=== PATIENT | female | born 1950 | race American Indian/Alaskan Native ===

== ENCOUNTER 2016-09-14 12:50 | Emergency (ER) | payer OTHER, BC ==
[2016-09-14 13:08] VITALS: BP 132/84; PULSE 85; TEMP 98.7; BMI 26.0
[2016-09-14] MEDS ORDERED: ALBUTEROL SO4 2.5/IPRATROPIUM 0.5 INH SOL 3 ML VIAL.NEB. NEB ONE ×2 (13:34→15:06)
[2016-09-14] MEDS ORDERED: guaiFENesin/CODEINE 5 ML UNIT-DOSE CUPS PO ONE (13:35)
--- NOTE | 2016-09-14 13:36 | PDOC ---
History of Present Illness - General Chief Complaint: Respiratory Stated Complaint: COUGH Time Seen by Provider: 09/14/16 13:19 History Source: Patient Exam Limitations: No Limitations - History of Present Illness Initial Comments: 66 yo F history DM presents with cough. She states that she saw her PMD when she initially became sick about a week ago. She was prescribed a z-pack and tamiflu, which she has finished. She noted that the fever, congestion, and SOB were improving, but today she started to have fits of coughing that leave her short of breath. She is not short of breath at rest, and she is able to take a deep breath. Cough is nonproductive. She took phenergan with codeine with incomplete relief (it was her last dose). Past History - Past Medical History Allergies/Adverse Reactions: Allergies Allergy/AdvReac Type Severity Reaction Status Date / Time acetaminophen [From Percocet] Allergy Unknown Verified 09/14/16 12:59 epinephrine Allergy Unknown Verified 09/14/16 12:59 oxycodone HCl [From Percocet] Allergy Unknown Verified 09/14/16 12:59 Home Medications: Ambulatory Orders Aspirin [Aspirin EC] 81 mg PO HS 09/14/16 Azithromycin [Zithromax -] 250 mg PO UTDICT 09/14/16 Guaifenesin AC [Robitussin AC -] 5 ml PO Q6H #60 ml MDD 20 mL 09/14/16 Losartan Potassium [Cozaar] 25 mg PO DAILY 09/14/16 Metformin HCl 500 mg PO DAILY 09/14/16 Metformin HCl [Glucophage] 1,000 mg PO HS 09/14/16 Oseltamivir Phosphate [Tamiflu -] 75 mg PO DAILY 09/14/16 Promethazine/Phenyleph/Codeine [Phenergan VC+Codeine Syrup] 5 ml PO QID PRN 11/26 Rosuvastatin Calcium [Crestor] 5 mg PO DAILY 09/14/16 Diabetes: Yes (TYPE II) HTN: Yes Hypercholesterolemia: Yes - Psycho/Social/Smoking Cessation Hx Anxiety: No Suicidal Ideation: No Smoking History: Never smoked Hx Alcohol Use: No Drug/Substance Use Hx: No Substance Use Type: None Review of Systems - Review of Systems Able to Perform ROS?: Yes Comments:: GENERAL/CONSTITUTIONAL: No fever or chills. No weakness. HEAD, EYES, EARS, NOSE AND THROAT: No change in vision. No ear pain or discharge. No sore throat. CARDIOVASCULAR: No chest pain or shortness of breath. RESPIRATORY: No wheezing or hemoptysis. +Dry cough GASTROINTESTINAL: No nausea, vomiting, diarrhea or constipation. GENITOURINARY: No dysuria, frequency, or change in urination. MUSCULOSKELETAL: No joint or muscle swelling or pain. No neck or back pain. SKIN: No rash NEUROLOGIC: No headache, vertigo, loss of consciousness, or change in strength/ sensation. ENDOCRINE: No increased thirst. No abnormal weight change. HEMATOLOGIC/LYMPHATIC: No anemia, easy bleeding, or history of blood clots. ALLERGIC/IMMUNOLOGIC: No hives or skin allergy. *Physical Exam - Vital Signs Last Vital Signs Temp Pulse Resp BP Pulse Ox 98.7 F 85 20 132/84 96 09/14/16 12:57 09/14/16 12:57 09/14/16 12:57 09/14/16 12:57 09/14/16 12:57 - Physical Exam Comments: GENERAL: Awake, alert, and fully oriented, in no acute distress HEAD: No signs of trauma EYES: PERRLA, EOMI, sclera anicteric, conjunctiva clear ENT: Auricles normal inspection, hearing grossly normal, nares patent, oropharynx clear without exudates. Moist mucosa NECK: Normal ROM, supple, no lymphadenopathy, JVD, or masses LUNGS: Breath sounds equal, clear to auscultation bilaterally. No wheezes, and no crackles. Intermittent dry cough. HEART: Regular rate and rhythm, normal S1 and S2, no murmurs, rubs or gallops ABDOMEN: Soft, nontender, normoactive bowel sounds. No guarding, no rebound. No masses EXTREMITIES: Normal range of motion, no edema. No clubbing or cyanosis. No cords, erythema, or tenderness NEUROLOGICAL: Cranial nerves II through XII grossly intact. Normal speech, normal gait SKIN: Warm, Dry, normal turgor, no rashes or lesions noted. *DC/Admit/Observation/Transfer Diagnosis at time of Disposition: Cough - Discharge Dispostion Disposition: HOME Condition at time of disposition: Stable Admit: No - Prescriptions Prescriptions: Guaifenesin AC [Robitussin AC -] 5 ml PO Q6H #60 ml MDD 20 mL - Referrals Referrals: Ivanna Olivares MD [Primary Care Provider] -
[2016-09-14] MEDS ORDERED: guaiFENesin/CODEINE 10 ML UNIT-DOSE CUPS ONE (15:06)
== END 2016-09-14 15:40 | disposition home or self-care (01) ==
LOC: FER 12:50
PROC: 3E0F7GC Introduction of Other Therapeutic Substance into Respiratory Tract, Via Natural or Artificial Opening (ICD-10-PCS; principal; 2016-09-14)
DX: R05 Cough (principal); E11.9 Type 2 diabetes mellitus without complications; I10 Essential (primary) hypertension; E78.00 Pure hypercholesterolemia, unspecified; Z79.84 Long term (current) use of oral hypoglycemic drugs
CPT/HCPCS: 71020-TC; 94640; 99281-25

== ENCOUNTER 2021-05-26 07:42 | Day surgery (SDC) | payer OTHER, BC ==
[2021-05-20 13:53] VITALS: BMI 24.5
[2021-05-26] MEDS ORDERED: ceFAZolin SODIUM 1 GM VIAL ONE ×2 (09:26→09:50)
[2021-05-26] MEDS ORDERED: POVIDONE-IODINE 5% OPHTHALMIC PREP 30 ML SOLUTION ONE (09:26)
[2021-05-26] MEDS ORDERED: MIDAZOLAM HCL 2 MG/2 ML SINGLE DOSE VIAL ONE (09:37)
[2021-05-26] MEDS ORDERED: PROPOFOL 20 ML ONE (09:58)
[2021-05-26] MEDS ORDERED: ONDANSETRON 4 MG/2 ML VIAL ONE (10:02)
[2021-05-26] MEDS ORDERED: DEXAMETHASONE SOD PHOSPHATE 4 MG/1 ML VIAL ONE (10:02)
[2021-05-26] MEDS ORDERED: ONDANSETRON 4 MG/2 ML VIAL IVPUSH PRN (10:46)
[2021-05-26] MEDS ORDERED: traMADol HCL 50 MG TABLET PO ONE (10:47)
[2021-05-26] MEDS ORDERED: LACTATED RINGERS SOLUTION 1,000 ML IV SCH (11:00)
[2021-05-26] MEDS ORDERED: traMADol HCL 50 MG TABLET ONE (11:51)
[2021-05-26 12:14] VITALS: PULSE 59
[2021-05-26 12:55] VITALS: BP 129/74; TEMP 98
== END 2021-05-26 12:35 | disposition home or self-care (01) ==
LOC: FASU 07:42
PROVIDERS: ATTEND Ophthalmology
PROC: 08SN0ZZ Reposition Right Upper Eyelid, Open Approach (ICD-10-PCS; 2021-05-26)
PROC: 08SP0ZZ Reposition Left Upper Eyelid, Open Approach (ICD-10-PCS; principal; 2021-05-26 09:55)
DX: H02.423 Myogenic ptosis of bilateral eyelids (principal)
CPT/HCPCS: 82962; 94760